=== PATIENT | male | born 1960 | race Caucasian/White ===

== ENCOUNTER 2017-02-01 05:49 | Emergency (ER) | payer SELFPAY ==
--- NOTE | ~2017-02-01 | ER ---
PATIENT'S NAME: [facility] AGE: 56 Y [address] ROOM: [place] [address] LOCATION: [facility] ADMIT DATE: 02/01/2017 ER/Outpatient Report DISCHARGE DATE: 02/01/2017 FAMILY PHYSICIAN: PHYSICIAN, NO ATTENDING PHYSICIAN: Kike Tobias Time of Arrival: 0549 hours. Time of Evaluation: 0605 hours. IDENTIFICATION: A 56-year-old male. CHIEF COMPLAINT: Fall and weakness. HISTORY OF PRESENT ILLNESS: The patient is a 56-year-old male, who was brought in by ambulance. Apparently, he got up, went outside, and had a smoke. In doing so, when he got back in, he said his left leg just gave out and he fell to the floor. He said that leg has been giving him trouble like for the last couple weeks, he has had some numbness on the bottom of that foot. He has no other problems or concerns. He did not hit his head. No loss of consciousness. No other complaints. The patient states he drinks 3 to 4 drinks daily and his last drink was at midnight. ALLERGIES: NO KNOWN DRUG ALLERGIES. CURRENT MEDICATIONS: No current medications. MEDICAL PROBLEMS: The patient denies. Old records reflect a history of pancreatitis, alcohol dependence, alcohol withdrawn, hypertension, acute kidney injury, metabolic acidosis, acute encephalopathy, and protein-calorie malnutrition. PRIOR SURGERIES: Denies. SOCIAL HISTORY: The patient is . Lives here in [place]. Tobacco use, half pack per day. Alcohol use, the patient states only 3 to 4 drinks per day. FAMILY HISTORY: No pertinent family history identified. PATIENT'S NAME: [facility] AGE: 56 Y [address] ROOM: [place] [address] LOCATION: [facility] ADMIT DATE: 02/01/2017 ER/Outpatient Report DISCHARGE DATE: 02/01/2017 FAMILY PHYSICIAN: PHYSICIAN, NO ATTENDING PHYSICIAN: Kike Tobias REVIEW OF SYSTEMS: All systems reviewed and negative other than what is noted in the HPI. PHYSICAL EXAMINATION: VITAL SIGNS: Weight 72 kg, blood pressure 143/75, pulse 77, respirations 18, temperature 98.7, and saturations 94% on room air. GENERAL: This is a 56-year-old male in no acute distress. His smells heavily of alcohol. HEENT: Head: Normocephalic and atraumatic. Ears: TMs not visualized. Eyes: Pupils equal and reactive to light and accommodation. Extraocular movements intact. Nose: Mucosa pink. No lesions. Mouth: No lesions. Pharynx benign. NECK: Supple. No lymphadenopathy. No nuchal rigidity. LUNGS: Clear to auscultation. HEART: Regular rate and rhythm. ABDOMEN: Bowel sounds present, soft, nondistended, and nontender. SKIN: [place], warm, and dry. No lesions or rashes noted. NEURO: The patient is alert and oriented x4. Cranial nerves II through XII grossly intact. Motor strength 4/5 in the left upper extremity, 4/5 in the left lower extremity, and 5/5 on the right side. Sensation slightly decreased to light touch on the bottom of his left foot. The patient has no tenderness to pelvic rock. He has no pain with flexion or extension of his hip nor with internal external rotation. No bruising or ecchymosis is noted. LABORATORY DATA AND X-RAYS: Head CT without contrast, normal. Pelvis and left hip, no acute fracture or dislocation. One-view chest x-ray, no acute process, pending Radiology over- read. EKG showed sinus rhythm at 62 beats per minute, first-degree AV block, and nonspecific ST-T wave changes. Hemoglobin 14.1; hematocrit 41.1; platelets 73, which is stable, most recent platelet count was 75 in June 2016; white count 3.3, which is down from 5.8 in June. White blood cell differential is normal. INR 0.94. Sodium 143; potassium 3; chloride 105; CO2 of 29; BUN 5; creatinine 0.7; blood sugar 89; liver enzymes elevated; AST 422, which is up from June; ALT 132, which is elevated; magnesium 2.1; Alcohol 0.381; cardiac enzymes negative; CRP less than 0.29; TSH 1.140. IMPRESSION: 1. Left lower and upper extremity weakness. 2. Fall probably secondary to left lower and upper extremity weakness. 3. Acute alcohol intoxication with history of chronic alcoholism. PLAN: Recommended hospitalization for observation, IV fluids, and Neurology consultation with the weakness on his left side. The patient refuses and did PATIENT'S NAME: [facility] AGE: 56 Y [address] 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 The patient has no primary care physician, but it was emphasized that he needs to follow up with primary care and no alcohol. CAREN ELISE MD CAR/poojal /[id number] d: 02/01/17 1805 t: 02/02/17 1458, OUTPATIENT REPORT
[~2017-02-01 05:49] MED LIST: ADVIL200 MG PO; FOLIC ACID1 MG PO; HYDROCODON-ACE1 EAC4 PO; LEVAQUIN 750 M750 MG PO; NAPROSYN500 MG PO; NICODERM/HABITR21 MG TRANS; STRESS B-COMPL1 EACH PO; THIAMINE HCL100 MG PO; TOPROL XL25 MG PO
[2017-02-01 06:32] LABS: BASOPHIL # 0.1 K/uL (0.0-0.2); BASOPHIL % 1.8 %; EOSINOPHIL # 0.1 K/uL (0.0-0.5); EOSINOPHIL % 3.6 %; HEMATOCRIT 41.1 % (37.0-53.0); HEMOGLOBIN 14.1 g/dL (12.0-17.0); IMMATURE GRANULOCYTE % 0.6 %; LYMPHOCYTE # 1.3 K/uL (0.8-4.0); MCH 32.2 pg (27.0-34.0); MCHC 34.3 gm/dL (32.0-36.5); MCV 93.8 fl (83.0-98.0); MONOCYTE # 0.4 K/uL (0.0-1.0); MONOCYTE % 13.2 %; NEUTROPHIL # (ANC) 1.4 K/uL (1.4-9.0); NEUTROPHIL % 42.8 %; NRBC % 0 /100WBC (0-0.00); PLATELET COUNT 73 K/uL (150-450); RBC 4.38 M/uL (4.00-6.00); RDW-CV 14.4 % (11.9-14.6); WBC 3.3 K/uL (4.0-11.0)
[2017-02-01 06:45] LABS: INR - (THERAPEUTIC) 0.94 (0.92-1.07); PROTIME 9.9 SECONDS (9.8-11.4); PTT 27 SECONDS (25-32)
[2017-02-01 06:53] LABS: ALBUMIN 4.1 gm/dL (3.5-5.0); ALK PHOS 126 IU/L (33-138); ALT 132 IU/L (12-78); BLOOD UREA NITROGEN 5 mg/dL (6-24); CHLORIDE 105 mMol/L (96-110); CO2 29 mMol/L (22-32); CPK 73 IU/L (35-332); CREATININE 0.7 mg/dL (0.6-1.3); ESTIMATED GFR (MDRD EQUATION) > 60; MAGNESIUM 2.1 mg/dL (1.8-2.6); SODIUM 143 mMol/L (135-145); TOTAL BILIRUBIN 0.9 mg/dL (0.0-1.5); TOTAL PROTEIN 7.6 g/dL (6.0-8.4)
[2017-02-01 06:56] LABS: AST 422 IU/L (10-40)
== END 2017-02-01 08:32 | disposition disaster alternative care site (69) ==
LOC: GMED 05:49
PROVIDERS: Family Medicine
DX: R29.898 Other symptoms and signs involving the musculoskeletal system (principal); F10.229 Alcohol dependence with intoxication, unspecified; F17.210 Nicotine dependence, cigarettes, uncomplicated; I10 Essential (primary) hypertension; Z87.448 Personal history of other diseases of urinary system; Z87.19 Personal history of other diseases of the digestive system; Z86.39 Personal history of other endocrine, nutritional and metabolic disease; W18.30XA Fall on same level, unspecified, initial encounter; Y90.0 Blood alcohol level of less than 20 mg/100 ml
CPT/HCPCS: G0480

== ENCOUNTER 2017-02-24 12:11 | Emergency (ER) | payer SELFPAY ==
--- NOTE | ~2017-02-24 | ER ---
PATIENT'S NAME: [facility] AGE: 56 Y [address] ROOM: [place] [address] LOCATION: [facility] ADMIT DATE: 02/24/2017 ER/Outpatient Report DISCHARGE DATE: 02/24/2017 FAMILY PHYSICIAN: PHYSICIAN, NO ATTENDING PHYSICIAN: Arsen Estes Admission date and time documented in medical record. I saw the patient at 1250 hours. CHIEF COMPLAINT: Stroke alert. HISTORY OF PRESENT ILLNESS: This patient is a 56-year-old male was brought into the emergency room by paramedics via ambulance. Paramedics called stroke alert. Stroke alert was called here in the emergency department. Apparently was out in the garage. He came in, sat on the floor, fell over, and had shaking type activity, which the said could be a seizure. No postictal state. No loss of consciousness. No incontinence stool or urine. Paramedics brought the patient into the emergency room for evaluation via ambulance. The patient is a known alcoholic. Does also abuse tobacco. No listed drug use. He has had some withdrawal seizures in the past. states they have not drank for about 3 days, although the patient admits he did drink last night. Again, no postictal state on arrival. The patient is awake, alert, and a little shaky, but answered questions fairly appropriately. Followed commands. His NIH stroke scale was zero. We did do an immediate CT scan of the head because of stroke alert. CT scan of the head showed no intracranial bleed, midline shift, mass effect, or skull fracture. There was no evidence of previous stroke or encephalomalacia. The patient denies any recent cough, colds, flus, fever, chills, or sweats. No chest pain or shortness of breath. No abdominal pain. No nausea, vomiting, diarrhea, urinary frequency, urgency, or dysuria. No joint or muscle swelling, redness, or pain. No skin eruptions or rash. Denies any lightheadedness or dizziness. No fall or trauma. Questionable history of withdrawal seizures. No previous TIA or stroke. No endocrine problems. No psych issues. HOME MEDICATIONS: See attached medication list. ALLERGIES: NONE. SOCIAL HISTORY: The patient smokes half pack of cigarettes per day. Drinks daily. PATIENT'S NAME: [facility] AGE: 56 Y [address] ROOM: [place], [place] [address] LOCATION: [facility] ADMIT DATE: 02/24/2017 ER/Outpatient Report DISCHARGE DATE: 02/24/2017 FAMILY PHYSICIAN: PHYSICIAN, NO ATTENDING PHYSICIAN: Arsen Estes SIGNIFICANT PAST MEDICAL HISTORY: Hypertension, alcoholism, tobaccoism, pancreatitis, acute kidney injury, metabolic acidosis, encephalopathy, and malnutrition. OPERATIONS: None. REVIEW OF SYSTEMS: All systems reviewed by me are negative with the exception of those discussed in the history of present illness. PHYSICAL EXAMINATION: VITAL SIGNS: Temperature 99.5 tympanic, pulse 107, respirations 18, blood pressure 133/95, and O2 saturation on room air is 94%. HEAD: Normocephalic. No abrasion, contusion, laceration, or swelling of scalp or face. EYES: Extraocular muscles intact. MACY. Sclerae and conjunctivae clear. Nonicteric. EARS: Clear TMs bilaterally. NOSE: Clear. THROAT: Clear. Mucous membranes moist. NECK: No nuchal rigidity. No thyromegaly or cervical adenopathy. No tenderness. SPINE: Negative. LUNGS: Clear good air flow. No rales, rhonchi, or wheezes. HEART: Regular. Pulses are palpable. Mildly tachycardic. Mildly tachypneic. No chest wall or ribcage pain to palpation. ABDOMEN: Soft, nondistended, nontender. Good bowel tones. No organomegaly or abnormal mass palpable. No CVA tenderness. EXTREMITIES: Without peripheral edema or cyanosis. Moves all 4 extremities. NEURO: NIH stroke scale zero. SKIN: Clear. LABORATORY DATA AND X-RAYS: CT scan of the head showed no intracranial bleed, midline shift, mass effect, or skull fracture. CT scan was read by Radiology, see dictated transcribed report. Chest x-ray showed no acute infiltrate. We will review x-ray with the radiologist. LABORATORY DATA: White count is 4000, 67 segs, 4 bands, 16 lymphs, 10 monos, and 3 eos. Hemoglobin is 12.9, hematocrit is 36.9, and platelet count is 53,000. PTT is 25, pro-time is 10.6, and INR is 1.01. Medical blood alcohol was less than 0.01. CPK was 242. CK-MB was 4. Troponin was less than 0.04. CMS was normal except for a slight low potassium of 3.6, low CO2 content of 14. PATIENT'S NAME: [facility] AGE: 56 Y [address] ROOM: [place], [place] [address] LOCATION: [facility] ADMIT DATE: 02/24/2017 ER/Outpatient Report DISCHARGE DATE: 02/24/2017 FAMILY PHYSICIAN: PHYSICIAN, NO ATTENDING PHYSICIAN: Arsen Estes Elevated anion gap of 25.6. Glucose 108. Total bilirubin was elevated at 2.2 and AST was elevated at 58. EKG showed sinus rhythm. No acute ST elevation, ischemic change, or arrhythmia. IMPRESSION: 1. Alcohol related symptomatology, shakiness, weakness, loss of appetite, and poor nutrition. 2. Tobaccoism. 3. Hypertension. 4. Past history of encephalopathy. 5. Past history of malnutrition. PLAN: The patient is given Ativan 1 mg orally in the emergency room. Discharged home. Observation. Activity as tolerated. Ativan 0.5 mg one three times a day for 3 days. Balanced diet. Avoid alcohol. Follow up with personal physician in 3 to 4 days. ARSEN ESTES MD SDS/modl /[id number] d: 02/24/17 2150 t: 02/25/17 0614, OUTPATIENT REPORT
[2017-02-24 12:31] LABS: HEMATOCRIT 36.9 % (37.0-53.0); HEMOGLOBIN 12.9 g/dL (12.0-17.0); MCH 33.5 pg (27.0-34.0); MCV 95.8 fl (83.0-98.0); MPV 9.9 fl (9.4-12.4); RBC 3.85 M/uL (4.00-6.00); RDW-CV 14.2 % (11.9-14.6)
[2017-02-24 12:32] LABS: PLATELET COUNT 53 K/uL (150-450)
[2017-02-24 12:41] LABS: INR - (THERAPEUTIC) 1.01 (0.92-1.07); PROTIME 10.6 SECONDS (9.8-11.4); PTT 25 SECONDS (25-32)
[2017-02-24 12:49] LABS: ALBUMIN 4.3 gm/dL (3.5-5.0); ALK PHOS 91 IU/L (33-138); ALT 36 IU/L (12-78); AST 58 IU/L (10-40); BLOOD UREA NITROGEN 7 mg/dL (6-24); CALCIUM 8.7 mg/dL (8.5-10.5); CHLORIDE 99 mMol/L (96-110); CREATININE 0.8 mg/dL (0.6-1.3); POTASSIUM 3.6 mMol/L (3.7-5.1); SODIUM 135 mMol/L (135-145); TOTAL PROTEIN 7.5 g/dL (6.0-8.4)
[2017-02-24 12:52] LABS: ANION GAP 25.6 (10.0-19.0); CO2 14 mMol/L (22-32); TOTAL BILIRUBIN 2.2 mg/dL (0.0-1.5)
[2017-02-24 12:54] LABS: ABSOLUTE NEUTROPHIL CT (ANC) 2.8 K/uL (1.4-9.0); BANDED NEUTROPHIL # 0.2 K/uL (0.0-0.1); BANDED NEUTROPHILS % 4 %; LYMPHOCYTE # 0.6 K/uL (0.8-4.0); LYMPHOCYTE % 16 %; MONOCYTE # 0.4 K/uL (0.0-1.0); SEGMENTED NEUTROPHIL # 2.7 K/uL (1.4-9.0); SEGMENTED NEUTROPHIL % 67 %
[2017-02-24 12:55] LABS: CPK 242 IU/L (35-332)
== END 2017-02-24 14:46 | disposition disaster alternative care site (69) ==
LOC: GMED 12:11
PROVIDERS: Emergency Medicine
DX: R53.1 Weakness (principal); R25.1 Tremor, unspecified; R63.0 Anorexia; E63.9 Nutritional deficiency, unspecified; I10 Essential (primary) hypertension; E87.2 Acidosis; K85.90 Acute pancreatitis without necrosis or infection, unspecified; N17.9 Acute kidney failure, unspecified; F17.210 Nicotine dependence, cigarettes, uncomplicated; Z86.61 Personal history of infections of the central nervous system
CPT/HCPCS: G0480